=== PATIENT | female | born 1965 | race Caucasian/White ===

== ENCOUNTER → 2025-01-14 | Outpatient (CLI) | payer BC, SELFPAY ==
[2025-01-14 09:41] LABS: Misc Send Out* See Sep Rpt
[2025-01-14 10:35] LABS: Basophils # (Auto) 0.0 Thou/mm3 (0.0-0.2); Basophils % (Auto) 1 % (0-2.5); Eosinophils # (Auto) 0.0 Thou/mm3 (0.0-0.5); Eosinophils % (Auto) 0 % (0-10); Hematocrit 41.5 % (36.0-46.0); Hemoglobin 13.9 g/dL (12.0-16.0); Immature Granulocytes Auto 0.03 Thou/mm3 (0.00-0.00); Lymphocytes # (Auto) 1.2 Thou/mm3 (1.0-4.8); Lymphocytes % (Auto) 26 % (10-50); Mean Corpuscular HGB Conc 33.5 g/dl (31.0-37.0); Mean Corpuscular Hemoglobin 30.2 pg (25.0-35.0); Mean Corpuscular Volume 90 fL (80-100); Monocytes # (Auto) 0.3 Thou/mm3 (0.0-0.8); Monocytes % (Auto) 7 % (0-12); Neutrophils # (Auto) 2.9 Thou/mm3 (1.8-7.7); Neutrophils % (Auto) 65 % (37-80); Nucleated Red Blood Cell # 0.00 Thou/mm3 (0.00-0.00); Nucleated Red Blood Cell % 0 /100 WBC (0); Platelet Count 242 Thou/mm3 (140-440); RDW Standard Deviation 45.7 fL (36.4-46.3); Red Blood Count 4.60 Miln/mm3 (4.00-5.20); White Blood Count 4.4 Thou/mm3 (3.6-11.0)
[2025-01-14 10:49] LABS: Alanine Aminotransferase 29 U/L (10-49); Albumin, Serum 4.5 gm/dL (3.4-4.8); Anion Gap 10 (7-16); BUN/Creatinine Ratio 10 Ratio (12-20); Blood Urea Nitrogen 9 mg/dL (9-23); Calcium 9.5 mg/dL (8.3-10.6); Calcium (Corrected) 9.5 mg/dL (8.5-10.1); Carbon Dioxide 25.2 mMol/L (20.0-31.0); Chloride 106 mMol/L (98-107); Creatinine (Component) 0.9 mg/dL (0.6-1.3); Free T4 (Free Thyroxine) 1.08 ng/dL (0.89-1.76); Glucose 98 mg/dL (74-106); Osmolality,Calculated 279 (275-295); Potassium 4.2 mMol/L (3.4-5.1); Sodium 141 mMol/L (136-145); Thyroid Stimulating Hormone 8.38 uIU/mL (0.55-4.78); eGFR > 60 See Note
[2025-01-14 11:26] LABS: Albumin/Globulin Ratio 2.3 (1.2-2.2); Alkaline Phosphatase 168 U/L (46-116); Aspartate Amino Transferase 21 U/L (0-34); Bilirubin,Total 0.3 mg/dL (0.3-1.2); Cardiac Risk Estimate 4.2 RATIO (3.7-5.6); Cholesterol 225 mg/dL (132-200); Globulin 2.0 gm/dL (2.3-3.5); HDL Cholesterol 54 mg/dL (40-60); LDL Cholesterol,Calculated 144 mg/dL (0-130); Total Protein 6.5 gm/dL (5.7-8.2); Triglycerides 134 mg/dL (30-150)
[2025-01-14 13:33] LABS: Free T3 2.4 pg/mL (2.3-4.2)
[2025-01-20 07:09] LABS: ACTH, Plasma* 13 pg/mL (6-50); Renin Activity, Plasma* 0.30 ng/mL/h (0.25-5.82)
[2025-01-23 07:00] LABS: Aldosterone* 5 ng/dL; Cortisol,total,LC/MS/MS* 10.5 mcg/dL; Zinc, Plasma* 49 mcg/dL (60-130)
== END | disposition home or self-care (01) ==
PROVIDERS: PCP Family Medicine; Referring Provider Internal Medicine Endocrinology, Diabetes & Metabolism; Visit Provider Internal Medicine Endocrinology, Diabetes & Metabolism
DX: E03.9 Hypothyroidism, unspecified (principal); R00.0 Tachycardia, unspecified; E66.9 Obesity, unspecified; Z98.84 Bariatric surgery status
CPT/HCPCS: 36415; 80053; 80061; 82024; 82088; 82533; 83835; 84244; 84439; 84443; 84481; 84630; 85025